=== PATIENT | female | born 1980 | race Caucasian/White ===

== ENCOUNTER 2016-11-23 11:39 | Emergency (ER) | payer BC, SELFPAY ==
[~2016-11-23] VITALS: Ht 172.7 cm; Wt 63.5 kg
[2016-11-23] MEDS ORDERED: VITA500T53 PO (12:30)
[2016-11-23] MEDS ORDERED: MEDR1VL IM (12:30)
[2016-11-23] MEDS ORDERED: LEVO10VL PO (12:30)
[2016-11-23] MEDS ORDERED: BUPR10TASR PO (12:30)
[2016-11-23] MEDS ORDERED: PROTPAK PO (12:30)
[2016-11-23] MEDS ORDERED: REGL5TAB2 PO (12:30)
[2016-11-23] MEDS ORDERED: GI COCKTAIL 50ML BTL(HYOSCYAMINE/MAALOX/LIDOCAINE VISCOUS)(1:3:1) PO ONE (13:45)
[2016-11-23] MEDS ORDERED: ONDANSETRON 4MG/2ML VIAL (J2405) IV ONE (14:30)
[2016-11-23] MEDS ORDERED: MORPHINE 4 MG/ML 1ML SYRINGE IV ONE (14:30)
[2016-11-23 14:41] LABS: MEAN CORPUSCULAR HEMOGLOBIN 28.5 pg (27.0-33.0); MEAN CORPUSCULAR HGB CONC 33.6 g/dl (32.0-36.5); MEAN CORPUSCULAR VOLUME 84.7 fl (80.0-96.0); RED CELL DISTRIBUTION WIDTH 12.7 % (11.5-14.5); WHITE BLOOD COUNT 11.1 K/mm3 (4.0-10.0)
--- NOTE | 2016-11-23 15:04 | REP ---
Right upper quadrant sonography: History: Right upper quadrant pain. Comparison study: April 14, 2011. Findings: Scanning through the right upper quadrant of the abdomen demonstrates a normal sized, thin-walled gallbladder without evidence of stone or polyp. Common bile duct is normal measuring 0.2 cm in greatest diameter. No focal liver lesion is seen. Liver size is normal. No pancreatic abnormality is observed. No right renal abnormality is seen. There is no evidence of ascites. The right kidney measures 10.5 x 4.5 x 4.3 cm. Impression: Negative right upper quadrant sonography. Signed by Rene Blanchard MD 11/23/2016 02:56 P
[2016-11-23 15:07] LABS: ALBUMIN 4.1 GM/DL (3.2-5.2); ALBUMIN/GLOBULIN RATIO 1.14 (1.00-1.93); ALKALINE PHOSPHATASE 82 U/L (45-117); ALT/SGPT 13 U/L (12-78); AMYLASE 46 U/L (25-115); ANION GAP 8 MEQ/L (8-16); AST/SGOT 15 U/L (15-37); BILIRUBIN,TOTAL 0.4 MG/DL (0.2-1.0); BLOOD UREA NITROGEN 8 MG/DL (7-18); CARBON DIOXIDE LEVEL 25 MEQ/L (21-32); CHLORIDE LEVEL 109 MEQ/L (98-107); CREATININE FOR GFR 0.82 MG/DL (0.55-1.02); GLOMERULAR FILTRATION RATE > 60.0 (>60); GLUCOSE, FASTING 87 MG/DL (70-105); POTASSIUM SERUM 4.1 MEQ/L (3.5-5.1); SODIUM LEVEL 142 MEQ/L (136-145); TOTAL PROTEIN 7.7 GM/DL (6.4-8.2)
[2016-11-23] MEDS ORDERED: ACET30TAB PO (15:39)
[2016-11-23] MEDS ORDERED: ZOFR4TAB3 PO (15:42)
[2016-11-23 15:48] VITALS: BP 131/88
--- NOTE | 2016-11-23 20:44 | ECGEPIP ---
Stationary ECG Study [facility] - ED Test Date: 2016-11-23 Pat Name: NORA MAURO Department: Room: - Gender: F [employer]: rn : 1980 Requested By: JEYSON Weinstein Order Number: [id number] Reading MD: Ricardo Anderson Measurements Intervals [place] Rate: 89 P: 61 PA: 157 QRS: 59 QRSD: 84 T: 9 QT: 345 QTc: 422 Interpretive Statements SINUS RHYTHM WITH SINUS ARRHYTHMIA NONSPECIFIC T-WAVE ABNORMALITY NO PRIORS Electronically Signed On 11-23-2016 20:44:26 EST by Ricardo Anderson
== END 2016-11-23 15:52 | disposition home or self-care (01) ==
LOC: M ED 13:22
DX: R07.89 Other chest pain (principal); R10.11 Right upper quadrant pain; R10.12 Left upper quadrant pain; Z79.899 Other long term (current) drug therapy
CPT/HCPCS: 76705; 80053; 82150; 82550; 82553; 83690; 85027; 93005; 96374; 96375; 99283; J2405